=== PATIENT | male | born 1990 | race Caucasian/White ===

== ENCOUNTER 2017-03-19 18:49 | Emergency (ER) | payer MEDICAID ==
[~2017-03-19] VITALS: Ht 185.4 cm; Wt 65.4 kg
[2017-03-19 18:52] VITALS: BP 126/65
[2017-03-19] MEDS ORDERED: HYDROcodone/APAP 5/325 TABLET ONE (19:14)
[2017-03-19] MEDS ORDERED: ZIPR20CA2 PO (19:18)
[2017-03-19] MEDS ORDERED: HYDROcodone/APAP 5/325 TABLET PO ONE (19:30)
== END 2017-03-19 19:55 | disposition home or self-care (01) ==
LOC: ED 19:39
DX: S60.410A Abrasion of right index finger, initial encounter (principal); S60.412A Abrasion of right middle finger, initial encounter; S60.414A Abrasion of right ring finger, initial encounter; J45.909 Unspecified asthma, uncomplicated; Z85.118 Personal history of other malignant neoplasm of bronchus and lung; F17.200 Nicotine dependence, unspecified, uncomplicated; W22.01XA Walked into wall, initial encounter; Y93.89 Activity, other specified; Y92.89 Other specified places as the place of occurrence of the external cause; Y99.8 Other external cause status
CPT/HCPCS: 99284

== ENCOUNTER 2018-04-30 06:20 | Emergency (ER) | payer MEDICAID ==
[~2018-04-30] VITALS: Ht 167.6 cm; Wt 85.0 kg
[~2018-04-30 06:20] MED LIST: ZIPR20CA2 PO
[2018-04-30 06:25] VITALS: BP 118/57
== END 2018-04-30 08:20 | disposition home or self-care (01) ==
LOC: ED 08:14
DX: S60.042A Contusion of left ring finger without damage to nail, initial encounter (principal); L03.012 Cellulitis of left finger; I10 Essential (primary) hypertension; F17.200 Nicotine dependence, unspecified, uncomplicated; X58.XXXA Exposure to other specified factors, initial encounter; Y93.89 Activity, other specified; Y99.8 Other external cause status; Y92.69 Other specified industrial and construction area as the place of occurrence of the external cause
CPT/HCPCS: 99284

== ENCOUNTER 2018-09-02 10:13 | Emergency (ER) | payer MEDICAID ==
[~2018-09-02] VITALS: Ht 175.3 cm; Wt 67.9 kg
--- NOTE | 2018-09-02 10:54 | NUR ---
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
--- NOTE | 2018-09-02 11:10 | NUR ---
pt to ed for coughing up blood x3 days. pt states this is related to pesticides used at his home. right sided cp with palpation and movement, worse with deep breaths. lungs cta. no distress noted. connected to monitors. vss. call light within reach. awaiting md assessement.
[2018-09-02 11:11] VITALS: BP 125/41
--- NOTE | 2018-09-02 11:21 | NUR ---
md to bedside for assessment
== END 2018-09-02 11:48 | disposition home or self-care (01) ==
LOC: ED 11:18
DX: R05 Cough (principal); J45.909 Unspecified asthma, uncomplicated; F17.200 Nicotine dependence, unspecified, uncomplicated; I10 Essential (primary) hypertension; Z85.118 Personal history of other malignant neoplasm of bronchus and lung
CPT/HCPCS: 99281

== ENCOUNTER 2019-07-02 15:52 | Emergency (ER) | payer MEDICAID ==
[~2019-07-02] VITALS: Ht 188 cm; Wt 81.8 kg
[2019-07-02 15:58] VITALS: BP 109/64
[2019-07-02] MEDS ORDERED: LIDOCAINE-MPF 1%, 5ML ONE (17:29)
[2019-07-02] MEDS ORDERED: LORazepam 2 MG/ML, 1ML ONE (17:30)
[2019-07-02] MEDS ORDERED: CLINDAMYCIN 300 MG CAPSULE PO ONE (17:30)
[2019-07-02] MEDS ORDERED: CLINDAMYCIN 300 MG CAPSULE ONE (17:35)
[2019-07-02] MEDS ORDERED: LORazepam 2 MG/ML, 1ML IM ONE (18:00)
[2019-07-02] MEDS ORDERED: NEOSPORIN OINT. PKT 1 PACKET ONE (18:39)
--- NOTE | 2019-07-02 19:08 | NUR ---
Patient/Caregiver given discharge instructions and they have confirmed that they understand the instructions. Patient ambulatory with steady gait.
== END 2019-07-02 19:09 | disposition home or self-care (01) ==
LOC: ED 19:00
DX: L02.214 Cutaneous abscess of groin (principal); L03.314 Cellulitis of groin; I10 Essential (primary) hypertension; J45.909 Unspecified asthma, uncomplicated
CPT/HCPCS: 96372; 99283; J2060

== ENCOUNTER 2019-07-06 12:49 | Emergency (ER) | payer MEDICAID ==
[~2019-07-06] VITALS: Ht 182.9 cm; Wt 70.3 kg
[2019-07-06 12:50] VITALS: BP 116/52
--- NOTE | 2019-07-06 13:50 | NUR ---
pt to room from lobby
--- NOTE | 2019-07-06 14:45 | NUR ---
WOUND PACKING REMOVED AND REAPPLIED BY [facility], DRESSED BY [facility]. PT GIVEN DC INSTRUCTIONS AND SCRIPT, EDUCATED REGARDING RX FOR BACTRIM. PT AMB TO DC DESK WITH STEADY GAIT. NADN AT DC.
== END 2019-07-06 14:44 | disposition home or self-care (01) ==
LOC: ED 14:37
DX: L02.211 Cutaneous abscess of abdominal wall (principal)
CPT/HCPCS: 99283

== ENCOUNTER 2019-07-08 08:50 | Emergency (ER) | payer MEDICAID ==
[~2019-07-08] VITALS: Ht 182.9 cm; Wt 73.8 kg
[2019-07-08 08:59] VITALS: BP 123/51
--- NOTE | 2019-07-08 09:16 | NUR ---
SABAS AND TAPE PROVIDED TO PT FOR HOME DRESSING CHANGES.
== END 2019-07-08 09:18 | disposition home or self-care (01) ==
LOC: ED 09:15
DX: L02.211 Cutaneous abscess of abdominal wall (principal); J45.909 Unspecified asthma, uncomplicated; I10 Essential (primary) hypertension
CPT/HCPCS: 99282

== ENCOUNTER 2020-04-11 18:40 | Emergency (ER) | payer MEDICAID ==
[~2020-04-11] VITALS: Ht 182.9 cm; Wt 69.5 kg
[2020-04-11 18:54] VITALS: BP 125/44
--- NOTE | 2020-04-11 19:32 | NUR ---
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
== END 2020-04-11 20:10 | disposition home or self-care (01) ==
LOC: ED 20:09
DX: M79.672 Pain in left foot (principal); Z72.9 Problem related to lifestyle, unspecified; F17.210 Nicotine dependence, cigarettes, uncomplicated; I10 Essential (primary) hypertension; J45.909 Unspecified asthma, uncomplicated; Z85.118 Personal history of other malignant neoplasm of bronchus and lung
CPT/HCPCS: 99281; 99406

== ENCOUNTER 2020-04-23 11:54 | Emergency (ER) | payer MEDICAID ==
[~2020-04-23] VITALS: Ht 182.9 cm; Wt 61.0 kg
[2020-04-23 12:24] VITALS: BP 127/64
--- NOTE | 2020-04-23 12:25 | NUR ---
first contact with pt. pt is here for meth and cocaine detox. pt denies any sx. pt's aox4. resps even and unlabored. pt used them last night. bp/spo2 monitors in place. call light within reach. pa at bedside to evaluate at this time.
--- NOTE | 2020-04-23 12:54 | NUR ---
Patient given discharge instructions and they have confirmed that they understand the instructions. Patient ambulatory with steady gait.
== END 2020-04-23 12:55 | disposition home or self-care (01) ==
LOC: ED 12:30
DX: F14.129 Cocaine abuse with intoxication, unspecified (principal); F15.129 Other stimulant abuse with intoxication, unspecified; F17.210 Nicotine dependence, cigarettes, uncomplicated; I10 Essential (primary) hypertension
CPT/HCPCS: 99281